=== PATIENT | male | born 1980 | race Caucasian/White ===

== ENCOUNTER 2019-04-30 20:59 | Emergency (ER) | payer OTHER ==
[~2019-04-30] VITALS: Ht 193 cm; Wt 104.3 kg
[2019-04-30] MEDS ORDERED: KEFLEX500 M1 PO (23:02)
[2019-04-30] MEDS ORDERED: NORCO 7.5-3251 EACH PO (23:02)
[2019-04-30] MEDS ORDERED: PREDNISONE 10 M10 M1 PO (23:02)
[2019-04-30 23:12] VITALS: BP 138/79
== END 2019-04-30 23:12 | disposition home or self-care (01) ==
LOC: ER 20:59
DX: S02.32XA Fracture of orbital floor, left side, initial encounter for closed fracture (principal); S02.40FA Zygomatic fracture, left side, initial encounter for closed fracture; W22.8XXA Striking against or struck by other objects, initial encounter; Y93.68 Activity, volleyball (beach) (court); Y92.89 Other specified places as the place of occurrence of the external cause; Y99.8 Other external cause status